=== PATIENT | male | born 1960 | race Caucasian/White ===

== ENCOUNTER 2019-04-04 23:22 | Emergency (ER) | payer OTHER | END 2019-04-05 00:34 | disposition home or self-care (01) | LOC: FER 04-05 00:34 ==

== ENCOUNTER 2019-04-10 07:20 | Emergency (ER) | payer OTHER ==
[2019-04-10 07:27] VITALS: BP 160/103; PULSE 73; TEMP 98.6; BMI 27.6
--- NOTE | 2019-04-10 07:27 | PDOC ---
Suture Removal/Wound Check HPI - History of Present Illness Chief Complaint: Suture/Staple Removal(Here) Stated Complaint: SUTURE REMOVAL Time Seen by Provider: 04/10/19 07:22 - Onset of Previous Treatment Comment:: 04/10/19 07:25 59 year old male PMhx of HTN presents for suture removal. Pt sustained a laceration to left forehead extending to mid left eyebrow after falling 6 days ago and striking his head in the corner of a mirror. States no complications since suture repair. Denies fevers, chills, redness, pain, or drainage from the wound. Feels well otherwise, denies headache, N/V, weakness/numbness, CP, SOB, abd pain. Past History - Past Medical History Allergies/Adverse Reactions: Allergies Allergy/AdvReac Type Severity Reaction Status Date / Time No Known Allergies Allergy Verified 04/10/19 07:21 COPD: No HTN: Yes Hypercholesterolemia: Yes - Immunization History Td Vaccination: Yes TDAP Vaccination: Yes Immunization Up to Date: Yes - Suicide/Smoking/Psychosocial Hx Smoking Status: Yes Smoking History: Never smoked Years of Tobacco Use: 4 Have you smoked in the past 12 months: No Number of Cigarettes Smoked Daily: 10 Hx Alcohol Use: Yes (BEER OCCAS.) Drug/Substance Use Hx: No *Review of Systems - Review of Systems Comments:: 04/10/19 07:38 GENERAL/CONSTITUTIONAL: No fever or chills. No weakness. HEAD, EYES, EARS, NOSE AND THROAT: No change in vision. No ear pain or discharge. No sore throat. GASTROINTESTINAL: No nausea, vomiting, diarrhea or constipation. GENITOURINARY: No dysuria, frequency, or change in urination. CARDIOVASCULAR: No chest pain or shortness of breath. RESPIRATORY: No cough, wheezing, or hemoptysis. MUSCULOSKELETAL: No joint or muscle swelling or pain. No neck or back pain. SKIN: No rash NEUROLOGIC: No headache, vertigo, loss of consciousness, or change in strength/ sensation. ENDOCRINE: No increased thirst. No abnormal weight change. HEMATOLOGIC/LYMPHATIC: No anemia, easy bleeding, or history of blood clots. ALLERGIC/IMMUNOLOGIC: No hives or skin allergy. *Physical Exam - Physical Exam Comments: 04/10/19 07:39 GENERAL: Awake, alert, and fully oriented, in no acute distress HEAD: +older appearing infraorbital ecchymosis EYES: PERRLA, EOMI, sclera anicteric, conjunctiva clear ENT: Oropharynx clear without exudates. Moist mucosa LUNGS: Breath sounds equal, clear to auscultation bilaterally. No wheezes, and no crackles HEART: Regular rate and rhythm, normal S1 and S2, no murmurs, rubs or gallops ABDOMEN: Soft, nontender, normoactive bowel sounds. No guarding, no rebound. No masses EXTREMITIES: Normal range of motion, no edema. No cords, erythema, or tenderness NEUROLOGICAL: Normal speech, cranial nerves intact, equal strength and sensation b/l, normal gait SKIN: +healed curvilinear laceration extending from L forehead about mid eyebrow down to the mid upper eyelid. 9 sutures removed intact. No bleeding. No surrounding erythema, warmth Medical Decision Making - Medical Decision Making 04/10/19 07:45 59yo M presents to the ED for suture removal Sutures removed w/o complication Pt well appearing, asymptomatic Initial BP elevated to 160/101, on rpt w/o intervention 144/88 Pt clinically stable for DC home I discussed the physical exam findings, ancillary test results and final diagnoses with the patient. I answered all of the patient's questions. The patient was satisfied with the care received and felt comfortable with the discharge plan and treatment plan. The patient will call their primary care physician within 24 hours to arrange follow-up and will return to the Emergency Department with any new, persistent or worsening symptoms. *DC/Admit/Observation/Transfer Diagnosis at time of Disposition: Laceration, Visit for suture removal - Discharge Dispostion Disposition: HOME Condition at time of disposition: Stable Decision to Admit order: No - Referrals - Patient Instructions Printed Discharge Instructions: DI for Suture Removal Additional Instructions: Follow up with your primary care doctor within 1 week Return to the emergency department if you have any new, worsening, or concerning symptoms such as fevers, headache, or vomiting. - Post Discharge Activity - Attestations Physician Attestion: 04/10/19 07:47 I, Dr. Neftali Hills MD, attest that this document has been prepared under my direction and personally reviewed by me in its entirety. I further attest, that it accurately reflects all work, treatment, procedures and medical decision -making performed by me.
== END 2019-04-10 07:36 | disposition home or self-care (01) ==
LOC: FER 07:20
DX: Z48.02 Encounter for removal of sutures (principal)
CPT/HCPCS: 99281-25

== ENCOUNTER 2023-04-17 10:24 | Day surgery (SDC) | payer OTHER ==
[2023-04-15 16:48] VITALS: BMI 28.8
[2023-04-17 10:59] VITALS: BP 172/99; PULSE 65; RESP 20; TEMP 97
[2023-04-17] MEDS ORDERED: PROPOFOL 40 ML ONE (12:38)
== END 2023-04-17 13:45 | disposition home or self-care (01) ==
LOC: FASU-ENDO 10:24
PROVIDERS: ATTEND Internal Medicine
PROC: 0DBL8ZX Excision of Transverse Colon, Via Natural or Artificial Opening Endoscopic, Diagnostic (ICD-10-PCS; 2023-04-17)
PROC: 0DBN8ZX Excision of Sigmoid Colon, Via Natural or Artificial Opening Endoscopic, Diagnostic (ICD-10-PCS; 2023-04-17)
PROC: 0DBH8ZX Excision of Cecum, Via Natural or Artificial Opening Endoscopic, Diagnostic (ICD-10-PCS; 2023-04-17)
PROC: 0DBK8ZX Excision of Ascending Colon, Via Natural or Artificial Opening Endoscopic, Diagnostic (ICD-10-PCS; principal; 2023-04-17 12:33)
DX: Z12.11 Encounter for screening for malignant neoplasm of colon (principal); D12.1 Benign neoplasm of appendix; D12.2 Benign neoplasm of ascending colon; D12.3 Benign neoplasm of transverse colon; D12.4 Benign neoplasm of descending colon; K63.5 Polyp of colon; Z86.010 Personal history of colon polyps; K64.8 Other hemorrhoids
CPT/HCPCS: 88305-TC

== ENCOUNTER 2024-03-02 11:44 | Inpatient (IN) | payer OTHER ==
[2024-03-02] MEDS ORDERED: IBUPROFEN 600 MG TABLET (FP) PO ONE (13:26)
[2024-03-02] MEDS: IBUPROFEN 600 MG TABLET (FP) PO ONE (13:27)
[2024-03-02 13:52] LABS: HEMATOCRIT 43.2 % (35.4-49); HEMOGLOBIN 14.5 GM/dL (11.7-16.9); INR 1.38 (0.83-1.09); MCH 29.1 pg (25.7-33.7); MCHC 33.6 g/dl (32.0-35.9); MEAN CELL VOLUME 86.7 fl (80-96); MEAN PLT VOLUME 8.7 fl (7.5-11.1); PLATELET COUNT 266 10^3/uL (134-434); PROTHROMBIN TIME (PATIENT) 15.5 SEC (9.7-13.0); RBC 4.98 M/mm3 (4.00-5.60); RDW 13.4 % (11.9-15.9); WHITE BLOOD COUNT 14.3 K/mm3 (4.0-10.0)
[2024-03-02 13:55] LABS: ACTIVATED PTT 26.9 SECONDS (25.2-36.5)
[2024-03-02 14:02] LABS: POTASSIUM 4.1 mmol/L (3.5-5.1)
[2024-03-02 14:06] LABS: BLOOD UREA NITROGEN 12.3 mg/dL (7-18); CALCIUM 8.8 mg/dL (8.5-10.1)
[2024-03-02 14:07] LABS: ALBUMIN 2.6 g/dl (3.4-5.0)
[2024-03-02 14:11] LABS: BILIRUBIN,TOTAL 0.9 mg/dL (0.2-1); TOT PROT 6.8 g/dl (6.4-8.2)
[2024-03-02] MEDS ORDERED: AZITHROMYCIN IVPB 500 MG/250 ML BAG IVPB ONE (14:46)
[2024-03-02] MEDS: AZITHROMYCIN IVPB 500 MG in DEXTROSE 5%-WATER - 250 ML IVPB ONE (14:49)
[2024-03-02] MEDS ORDERED: VANCOMYCIN 1 GRAM (PRE-DOCKED) 1,000 MG/250 ML BAG IVPB ONE (15:35)
[2024-03-02] MEDS ORDERED: PIPERACILLIN/TAZOB 3.375 GM 3.375 GM/50 ML BAG IVPB ONE (15:35)
[2024-03-02] MEDS: PIPERACILLIN/TAZOB 3.375 GM 3.375 GM in DEXTROSE 5%-WATER - 50 ML IVPB ONE (15:43)
[2024-03-02] MEDS: VANCOMYCIN 1,000 MG in DEXTROSE 5%-WATER - 250 ML IVPB ONE (16:17)
[2024-03-02 18:23] VITALS: BMI 29.5
[2024-03-02] MEDS: CEFTRIAXONE 1 GM in DEXTROSE 5%-WATER - 50 ML IVPB SCH (18:28)
[2024-03-02] MEDS: ACETAMINOPHEN 325 MG TABLET (FP) PO PRN (20:25)
[2024-03-03 08:09] LABS: BASO % 0.2 % (0-2.0); EOS % 0.1 % (0-4.5); HEMATOCRIT 39.4 % (35.4-49); HEMOGLOBIN 13.5 GM/dL (11.7-16.9); LYMPH % 10.2 % (8-40); MCH 29.6 pg (25.7-33.7); MCHC 34.4 g/dl (32.0-35.9); MEAN CELL VOLUME 85.9 fl (80-96); MONO % 7.1 % (3.8-10.2); NEUT % 82.4 % (42.8-82.8); PLATELET COUNT 262 10^3/uL (134-434); RBC 4.58 M/mm3 (4.00-5.60); RDW 13.7 % (11.9-15.9)
[2024-03-03 09:26] LABS: ALBUMIN 2.1 g/dl (3.4-5.0); BILIRUBIN,TOTAL 0.5 mg/dL (0.2-1); BLOOD UREA NITROGEN 16.3 mg/dL (7-18); CALCIUM 8.4 mg/dL (8.5-10.1); MAGNESIUM 2.2 mg/dL (1.8-2.4); PHOSPHOROUS 3.4 mg/dL (2.5-4.9); POTASSIUM 4.6 mmol/L (3.5-5.1); TOT PROT 5.7 g/dl (6.4-8.2)
[2024-03-03] MEDS: LOSARTAN POTASSIUM 50 MG TABLET PO SCH (09:54)
[2024-03-03] MEDS: ENOXAPARIN NA (PORCINE) 40 MG/0.4 ML DISP.SYRIN SQ SCH (09:55)
[2024-03-03] MEDS: PNEUMOC 20-VAL CONJ-DIP CRM/PF 0.5 ML SYRINGE IM ONE (09:56)
[2024-03-03] MEDS: FLU VACCINE (FLULAVAL) PF 60 MCG/0.5 ML SYRINGE 2023-2024 IM ONE (09:59)
[2024-03-03] MEDS ORDERED: AZITHROMYCIN IVPB 500 MG/250 ML BAG IVPB SCH (10:00)
[2024-03-03] MEDS ORDERED: AZITHROMYCIN 250 MG TABLET PO SCH (14:00)
[2024-03-03] MEDS: guaiFENesin 200 MG/10 ML 10 ML UNIT-DOSE CUPS PO PRN (18:40)
[2024-03-03] MEDS: ATORVASTATIN CA 80 MG TABLET (FP) PO SCH (21:22)
[2024-03-04 07:48] LABS: HEMATOCRIT 37.9 % (35.4-49); HEMOGLOBIN 13.2 GM/dL (11.7-16.9); MCH 30.1 pg (25.7-33.7); MCHC 34.8 g/dl (32.0-35.9); MEAN CELL VOLUME 86.3 fl (80-96); MEAN PLT VOLUME 7.8 fl (7.5-11.1); PLATELET COUNT 314 10^3/uL (134-434); RBC 4.39 M/mm3 (4.00-5.60); RDW 13.8 % (11.9-15.9)
[2024-03-04 07:57] LABS: POTASSIUM 3.5 mmol/L (3.5-5.1)
[2024-03-04 07:59] LABS: BLOOD UREA NITROGEN 13.8 mg/dL (7-18)
[2024-03-04 08:02] LABS: CREATININE 0.8 mg/dL (0.55-1.3)
[2024-03-04] MEDS: ALBUTEROL SO4 2.5/IPRATROPIUM 0.5 INH SOL 3 ML VIAL.NEB. NEB SCH (13:09)
[2024-03-04] MEDS: SIMETHICONE 80 MG TAB.CHEW (FP) PO PRN (13:58)
[2024-03-04] MEDS: MELATONIN 5 MG TABLETS PO PRN (21:03)
[2024-03-05 07:50] LABS: HEMATOCRIT 38.3 % (35.4-49); HEMOGLOBIN 12.7 GM/dL (11.7-16.9); MCH 29.1 pg (25.7-33.7); MCHC 33.3 g/dl (32.0-35.9); MEAN CELL VOLUME 87.6 fl (80-96); MEAN PLT VOLUME 7.7 fl (7.5-11.1); PLATELET COUNT 346 10^3/uL (134-434); RBC 4.37 M/mm3 (4.00-5.60); RDW 13.8 % (11.9-15.9)
[2024-03-06 08:21] LABS: BASO % 0.4 % (0-2.0); EOS % 0.9 % (0-4.5); HEMOGLOBIN 13.4 GM/dL (11.7-16.9); LYMPH % 17.3 % (8-40); MCH 29.9 pg (25.7-33.7); MCHC 34.3 g/dl (32.0-35.9); MEAN CELL VOLUME 87.3 fl (80-96); MEAN PLT VOLUME 7.8 fl (7.5-11.1); MONO % 5.9 % (3.8-10.2); NEUT % 75.5 % (42.8-82.8); PLATELET COUNT 432 10^3/uL (134-434); RBC 4.47 M/mm3 (4.00-5.60); RDW 13.4 % (11.9-15.9); WHITE BLOOD COUNT 13.9 K/mm3 (4.0-10.0)
[2024-03-07 09:11] LABS: BASO % 0.4 % (0-2.0); EOS % 1.5 % (0-4.5); HEMATOCRIT 41.4 % (35.4-49); HEMOGLOBIN 13.8 GM/dL (11.7-16.9); LYMPH % 20.4 % (8-40); MCH 29.4 pg (25.7-33.7); MCHC 33.4 g/dl (32.0-35.9); MEAN CELL VOLUME 87.9 fl (80-96); MEAN PLT VOLUME 7.6 fl (7.5-11.1); MONO % 5.8 % (3.8-10.2); NEUT % 71.9 % (42.8-82.8); PLATELET COUNT 501 10^3/uL (134-434); RBC 4.71 M/mm3 (4.00-5.60); RDW 13.5 % (11.9-15.9)
[2024-03-07 09:22] LABS: POTASSIUM 4.9 mmol/L (3.5-5.1)
[2024-03-07 09:24] LABS: CALCIUM 8.4 mg/dL (8.5-10.1)
[2024-03-07 09:25] LABS: BLOOD UREA NITROGEN 12.7 mg/dL (7-18)
[2024-03-07 09:28] LABS: CREATININE 0.8 mg/dL (0.55-1.3)
[2024-03-07] MEDS: predniSONE 20 MG TABLET (UD) PO SCH (15:40)
[2024-03-08 08:31] LABS: HEMATOCRIT 40.9 % (35.4-49); HEMOGLOBIN 13.5 GM/dL (11.7-16.9); MCHC 33.1 g/dl (32.0-35.9); MEAN CELL VOLUME 87.8 fl (80-96); MEAN PLT VOLUME 7.6 fl (7.5-11.1); PLATELET COUNT 553 10^3/uL (134-434); RBC 4.66 M/mm3 (4.00-5.60); RDW 13.4 % (11.9-15.9); WHITE BLOOD COUNT 16.1 K/mm3 (4.0-10.0)
[2024-03-08 09:07] VITALS: RESP 20
[2024-03-08 14:38] VITALS: BP 127/79; PULSE 81; TEMP 98.3
== END 2024-03-08 14:39 | disposition home or self-care (01) | DRG 193 ==
LOC: JER 11:44 → JERBED 16:25 → OBSVTOIN 16:57 → J6S 17:46
PROVIDERS: ADMIT Internal Medicine; ATTEND Internal Medicine
DX: J13 Pneumonia due to Streptococcus pneumoniae (principal); J96.01 Acute respiratory failure with hypoxia; I10 Essential (primary) hypertension; E78.5 Hyperlipidemia, unspecified; G47.33 Obstructive sleep apnea (adult) (pediatric)
CPT/HCPCS: 0241U-QW; 36415; 71046-TC-FY; 71275-TC; 80048; 80053; 83735; 84100; 84484; 85025; 85027; 85610; 85730; 87040; 87070; 87186; 87205; 87899; 90677; 90686; 93005; 93010; 94640; 94761; 99285-25; G0008; G0009; G0378